=== PATIENT | female | born 1995 | race African-American/Black ===

== ENCOUNTER 2017-07-08 21:19 | Emergency (ER) | payer OTHER ==
[~2017-07-08] VITALS: Ht 167.6 cm; Wt 74.4 kg
[2017-07-08 21:39] VITALS: BP 106/69
[2017-07-08] MEDS ORDERED: IRON325 PO (21:52)
[2017-07-08] MEDS ORDERED: PRENATA CHEWAB1 EACH PO (21:52)
== END 2017-07-08 21:55 | disposition short-term general hospital (02) ==
LOC: ER 21:19
DX: O80 Encounter for full-term uncomplicated delivery (principal); Z3A.37 37 weeks gestation of pregnancy